=== PATIENT | female | born 1960 | race Caucasian/White ===

== ENCOUNTER 2020-05-09 11:57 | Emergency (ER) | payer MEDICAID ==
[~2020-05-09] VITALS: Ht 170.2 cm; Wt 57.6 kg
[2020-05-09 12:04] VITALS: BP 128/61
== END 2020-05-09 13:52 | disposition home or self-care (01) ==
LOC: ER 11:57
DX: M77.8 Other enthesopathies, not elsewhere classified (principal)
CPT/HCPCS: 29125; 73110